=== PATIENT | male | born 1995 | race Caucasian/White ===

== ENCOUNTER 2017-03-05 18:13 | Emergency (ER) | payer OTHER ==
[~2017-03-05] VITALS: Ht 177.8 cm; Wt 72.6 kg
[2017-03-05 18:14] VITALS: BP 137/77
[2017-03-05] MEDS ORDERED: BACL10TA2 PO (18:21)
[2017-03-05] MEDS ORDERED: SOMA350T PO (18:39)
[2017-03-05] MEDS ORDERED: IBUP600T26 PO (18:39)
[2017-03-05] MEDS ORDERED: IBUPROFEN 600 MG TAB PO ONE (18:45)
== END 2017-03-05 19:32 | disposition home or self-care (01) ==
LOC: M ED 19:09
DX: S39.012A Strain of muscle, fascia and tendon of lower back, initial encounter (principal); X50.0XXA Overexertion from strenuous movement or load, initial encounter; Y92.89 Other specified places as the place of occurrence of the external cause; Y93.89 Activity, other specified; Y99.0 Civilian activity done for income or pay; F17.210 Nicotine dependence, cigarettes, uncomplicated